=== PATIENT | male | born 1940 | race Caucasian/White ===

== ENCOUNTER → 2017-01-24 | Outpatient (CLI) | payer MEDICARE ==
--- NOTE | 2017-01-24 12:37 | REP ---
Bilateral carotid artery duplex ultrasound: Peak flow velocity analysis: RIGHT LEFT ICA. Peak flow velocity cm/sec 45 63 ICA Diastolic flow velocity cm/sec 8 18 ICA/CCA Ratio 0.58 0.64 There is shallow atheromatous plaque extending from the bulbs into the proximal ICA and ECA bilaterally. Peak flow velocities are normal bilaterally. The findings indicate less than 50% narrowing bilaterally. There is no significant stenosis on the right on the left. There is antegrade flow in the vertebral arteries bilaterally. Signed by Danny Thomas MD 01/24/2017 12:29 P
== END ==
LOC: M RAD 11:28
PROVIDERS: ATTEND Ophthalmology
DX: H34.8310 Tributary (branch) retinal vein occlusion, right eye, with macular edema (principal)

== ENCOUNTER → 2018-10-23 | Outpatient (CLI) | payer MEDICARE ==
[2018-10-23 10:50] LABS: INR 1.17; PROTHROMBIN TIME 15.1 SECONDS (12.1-14.4)
== END ==
LOC: M LAB 09:50
PROVIDERS: ATTEND Internal Medicine Cardiovascular Disease
DX: I48.0 Paroxysmal atrial fibrillation (principal)

== ENCOUNTER → 2020-11-27 | Outpatient (CLI) | payer MEDICARE ==
[2020-11-27 13:37] LABS: APPEARANCE, URINE HAZY (CLEAR); BACTERIA, URINE AUTO NEGATIVE (NEGATIVE); BILIRUBIN, URINE AUTO NEGATIVE (NEGATIVE); BLOOD, URINE BLOOD NEGATIVE (NEGATIVE); COLOR, URINE YELLOW (YELLOW); GLUCOSE, URINE (UA) AUTO NEGATIVE (NEGATIVE); KETONE, URINE AUTO NEGATIVE (NEGATIVE); LEUKOCYTE ESTERASE, URINE AUTO NEGATIVE (NEGATIVE); MUCUS, URINE SMALL (NEGATIVE); NITRITE, URINE AUTO NEGATIVE (NEGATIVE); PROTEIN, URINE AUTO NEGATIVE (NEGATIVE); RBC, URINE AUTO 1 /HPF (0-3); SPECIFIC GRAVITY URINE AUTO 1.015 (1.002-1.035); SQUAMOUS EPITHELIAL CELL UR AU 0 /HPF (0-6); UROBILINOGEN, URINE AUTO 0.2 mg/dL (0.0-2.0); WBC, URINE AUTO 0 /HPF (0-3)
[2020-11-27 14:04] LABS: CALCIUM LEVEL 9.5 MG/DL (8.8-10.2); CHOLESTEROL RISK RATIO 2.854 (<5); CREATININE FOR GFR 1.26 MG/DL (0.70-1.30); GLOMERULAR FILTRATION RATE 58.8 (>42); POTASSIUM SERUM 4.5 MEQ/L (3.5-5.1)
== END ==
LOC: M LAB 12:40
PROVIDERS: ATTEND Physician Assistant
DX: I48.0 Paroxysmal atrial fibrillation (principal); E78.5 Hyperlipidemia, unspecified

== ENCOUNTER → 2023-04-12 | Outpatient (CLI) | payer MEDICARE | LOC: M RAD 10:25 | PROVIDERS: ATTEND Internal Medicine Cardiovascular Disease | DX: I65.29 Occlusion and stenosis of unspecified carotid artery (principal) ==

== ENCOUNTER 2023-07-26 09:19 | Inpatient (IN) | payer MEDICARE ==
[~2023-07-26] VITALS: Ht 175.3 cm; Wt 86.0 kg
[2023-07-26] MEDS ORDERED: WARF-20 PO (09:29)
[2023-07-26] MEDS ORDERED: TAMS1CAP17 PO (09:29)
[2023-07-26] MEDS ORDERED: LIPI20TA PO (09:29)
[2023-07-26] MEDS ORDERED: ONDA4TAB6 PO (09:29)
[2023-07-26] MEDS ORDERED: LISI20TA33 PO (09:30)
[2023-07-26] MEDS ORDERED: CARV6.25 PO (09:30)
[2023-07-26] MEDS ORDERED: ACET-683 PO (09:31)
[2023-07-26] MEDS ORDERED: MORPHINE 4 MG/ML 1ML VIAL IV ONE ×2 (10:45→15:15)
[2023-07-26] MEDS ORDERED: NS 1,000 ML IV ONE ×2 (10:45→12:10)
[2023-07-26] MEDS ORDERED: ONDANSETRON 4MG 2ML VIAL IV ONE (10:45)
[2023-07-26 10:55] LABS: BASO % 0.3 % (0.0-1.0); EOS # 0.1 10^3/uL (0.0-0.5); EOS % 0.5 % (0.0-3.0); HEMATOCRIT 37.7 % (42.0-52.0); HEMOGLOBIN 12.8 g/dl (13.5-17.5); LYMPH # 0.9 10^3/uL (1.5-5.0); LYMPH % 7.8 % (24.0-44.0); MEAN CORPUSCULAR HEMOGLOBIN 31.8 pg (27.0-33.0); MEAN CORPUSCULAR VOLUME 93.8 fl (80.0-96.0); MONO % 8.7 % (2.0-8.0); NEUTROPHILS # 9.2 10^3/uL (1.5-8.5); NEUTROPHILS % 82.3 % (36.0-66.0); PLATELET COUNT, AUTOMATED 225 10^3/uL (150-450); RED BLOOD COUNT 4.02 10^6/uL (4.30-6.10); WHITE BLOOD COUNT 11.1 10^3/uL (4.0-10.0)
[2023-07-26 10:59] LABS: ALBUMIN 3.6 G/DL (3.2-5.2); BILIRUBIN,TOTAL 0.9 MG/DL (0.3-1.2); CALCIUM LEVEL 8.8 MG/DL (8.3-10.6); CREATININE FOR GFR 2.08 MG/DL (0.70-1.30); GLOMERULAR FILTRATION RATE 32.7 (>35); POTASSIUM SERUM 4.8 MMOL/L (3.5-5.1); TOTAL PROTEIN 6.7 G/DL (5.7-8.2)
[2023-07-26] MEDS ORDERED: PERCOCET 5MG/325MG TAB PO ONE (13:40)
[2023-07-26] MEDS ORDERED: MORPHINE 4 MG/ML 1ML VIAL IV PRN (15:15)
[2023-07-26] MEDS ORDERED: LR 1,000 ML IV SCH (15:15)
[2023-07-26] MEDS ORDERED: MED REC IN PROGRESS XX SCH (15:20)
[2023-07-26 16:34] LABS: C REACTIVE PROTEIN QUANTITATIV 11.4 MG/DL (<1.0)
[2023-07-26] MEDS ORDERED: ATOR40TA75 PO (16:37)
[2023-07-26] MEDS ORDERED: VITATAB73 PO (16:37)
[2023-07-26] MEDS ORDERED: GALZ25CA PO (16:37)
[2023-07-26] MEDS ORDERED: WARF-23 PO (16:37)
[2023-07-26] MEDS ORDERED: MAGN120C2 PO (16:37)
[2023-07-26] MEDS ORDERED: HOME MED LIST COMPLETE! XX SCH (16:40)
[2023-07-26 16:42] LABS: PROCALCITONIN 0.08 ng/ml
[2023-07-26] MEDS ORDERED: ACETAMINOPHEN 500 MG TAB PO PRN (16:55)
[2023-07-26] MEDS ORDERED: ONDANSETRON 4MG ORAL DISINTEGRATING TAB PO PRN (16:55)
[2023-07-26 17:40] LABS: INR 2.38; PROTHROMBIN TIME 25.4 SECONDS (12.5-14.5)
[2023-07-26 17:41] LABS: PARTIAL THROMBOPLASTIN TIME 43.5 SECONDS (24.8-34.2)
[2023-07-26 18:11] VITALS: BP 120/64; TEMP 98.2; O2SAT 97
[2023-07-26] MEDS: CARVedilol 6.25 MG TAB PO SCH (21:01)
[2023-07-26 21:32] VITALS: BP 150/78; TEMP 98.8; O2SAT 97
[2023-07-26] MEDS ORDERED: PERCOCET 5MG/325MG TAB PO PRN (22:05)
[2023-07-27 05:43] LABS: HEMATOCRIT 32.6 % (42.0-52.0); HEMOGLOBIN 11.1 g/dl (13.5-17.5); MEAN CORPUSCULAR HEMOGLOBIN 32.3 pg (27.0-33.0); MEAN CORPUSCULAR VOLUME 94.8 fl (80.0-96.0); PLATELET COUNT, AUTOMATED 194 10^3/uL (150-450); RED BLOOD COUNT 3.44 10^6/uL (4.30-6.10); WHITE BLOOD COUNT 9.3 10^3/uL (4.0-10.0)
[2023-07-27 06:07] LABS: CALCIUM LEVEL 7.4 MG/DL (8.3-10.6); CREATININE FOR GFR 2.12 MG/DL (0.70-1.30); POTASSIUM SERUM 4.8 MMOL/L (3.5-5.1)
[2023-07-27 06:32] VITALS: BP 108/58; TEMP 97.2; O2SAT 97
[2023-07-27 07:12] LABS: INR 2.34; PROTHROMBIN TIME 25.1 SECONDS (12.5-14.5)
[2023-07-27 09:00] VITALS: BP 111/58
[2023-07-27] MEDS ORDERED: ATORVASTATIN 20 MG TAB PO SCH (09:00)
[2023-07-27] MEDS: CARVedilol 6.25 MG TAB PO SCH (09:00)
[2023-07-27] MEDS ORDERED: TAMSULOSIN 0.4 MG CAP PO SCH (09:00)
[2023-07-27] MEDS ORDERED: ceFAZolin SOD 2 GM in IV 1 EA IV ONE (11:45)
[2023-07-27] MEDS ORDERED: propofoL 200 MG/20 ML VIAL As Ordered ONE (11:46)
[2023-07-27] MEDS ORDERED: LIDOCAINE 2% 100MG/5ML SDV (FOR ANES.) As Ordered ONE (11:46)
[2023-07-27] MEDS ORDERED: fentaNYL 100 MCG/2 ML INJECTION As Ordered ONE (12:01)
[2023-07-27] MEDS ORDERED: MIDAZOLAM INJ 2MG/2ML VIAL As Ordered ONE (12:01)
[2023-07-27] MEDS ORDERED: ISOVUE-300 61% 100ML VIAL As Ordered ONE (12:04)
[2023-07-27] MEDS ORDERED: ONDANSETRON 4MG 2ML VIAL As Ordered ONE (12:34)
[2023-07-27] MEDS ORDERED: GLYCOPYRROLATE INJ 0.2 MG/ML 2 ML VIAL As Ordered ONE (12:37)
[2023-07-27] MEDS ORDERED: ePHEDrine SULFATE 25 MG/5 ML(5MG/ML) SYRINGE As Ordered ONE (12:38)
[2023-07-27] MEDS ORDERED: ceFAZolin 2 GM/D5W 50 ML IV BAG As Ordered ONE (12:42)
[2023-07-27] MEDS ORDERED: ACETAMINOPHEN 1000MG 100ML IV BAG As Ordered ONE (12:49)
[2023-07-27] MEDS ORDERED: ONDANSETRON 4MG 2ML VIAL IV PRN (13:05)
[2023-07-27] MEDS ORDERED: oxyCODONE 5MG TAB PO PRN (13:05)
[2023-07-27] MEDS ORDERED: LR 1,000 ML IV SCH (13:05)
[2023-07-27] MEDS ORDERED: fentaNYL 100 MCG/2 ML INJECTION IV PRN (13:05)
[2023-07-27] MEDS ORDERED: HYDROMORPHONE HCL 0.5 MG/ 0.5 ML SYRINGE IV PRN (13:05)
[2023-07-27 14:00] VITALS: BP 118/80; TEMP 97.7; O2SAT 89
[2023-07-27] MEDS ORDERED: CARV6.25 PO (15:09)
[2023-07-27] MEDS ORDERED: NORV5TAB PO (15:09)
[2023-07-27 15:16] LABS: CALCIUM LEVEL 7.4 MG/DL (8.3-10.6); CREATININE FOR GFR 1.93 MG/DL (0.70-1.30); GLOMERULAR FILTRATION RATE 35.7 (>35); POTASSIUM SERUM 4.8 MMOL/L (3.5-5.1)
[2023-07-27] MEDS ORDERED: cefTRIAXone SOD 2 GM in D5W MINI-BAG PLUS 50 ML IV SCH (18:00)
== END 2023-07-27 16:30 | disposition home or self-care (01) | DRG 660 ==
LOC: M ED 09:19 → M ED INP 15:21 → ENRESERV 16:25 → M MS5PR 17:55
PROVIDERS: ADMIT Internal Medicine; ATTEND Internal Medicine
PROC: 0TC78ZZ Extirpation of Matter from Left Ureter, Via Natural or Artificial Opening Endoscopic (ICD-10-PCS; 2023-07-27)
PROC: 0T778DZ Dilation of Left Ureter with Intraluminal Device, Via Natural or Artificial Opening Endoscopic (ICD-10-PCS; principal; 2023-07-27 15:45)
DX: N13.0 Hydronephrosis with ureteropelvic junction obstruction (principal); N20.1 Calculus of ureter; N17.9 Acute kidney failure, unspecified; I10 Essential (primary) hypertension; N40.0 Benign prostatic hyperplasia without lower urinary tract symptoms; I48.0 Paroxysmal atrial fibrillation; Z79.01 Long term (current) use of anticoagulants; Z66 Do not resuscitate; Z79.899 Other long term (current) drug therapy; R00.1 Bradycardia, unspecified

== ENCOUNTER → 2024-04-02 | Outpatient (REF) | payer MEDICARE ==
[~2024-04-02] MED LIST: ACET-683 PO; ATOR40TA75 PO; CARV6.25 PO; GALZ25CA PO; LIPI20TA PO; LISI20TA33 PO; MAGNESIUM GLYC120 MG PO; NORV5TAB PO; ONDA-282 PO; TAMS1CAP17 PO; VITATAB73 PO; WARF-20 PO; WARF-23 PO
== END ==
LOC: M LAB REF 15:13
PROVIDERS: ATTEND Surgery
DX: C43.61 Malignant melanoma of right upper limb, including shoulder (principal)

== ENCOUNTER → 2025-09-29 | Outpatient (CLI) | payer MEDICARE ==
[~2025-09-29] MED LIST changes: -GALZ25CA PO; +ZINC25CA2 PO
== END ==
LOC: M PLAIMG 09:36
PROVIDERS: ATTEND Nurse Practitioner Family
DX: I11.9 Hypertensive heart disease without heart failure (principal)